=== PATIENT | male | born 1960 ===

== ENCOUNTER → 2017-11-13 | Outpatient (CLI) | payer OTHER ==
--- NOTE | 2017-11-13 14:24 | Diagnostic Imaging Report ---
PROCEDURE: CT head without contrast. TECHNIQUE: Multiple contiguous axial images were obtained through the brain without the use of intravenous contrast. INDICATION: Double vision and pain to the posterior aspect of the head. COMPARISON: No prior studies are available for comparison. FINDINGS: The ventricles and sulci are within normal limits. No sulcal effacement is identified. There is no midline shift. No acute intra-axial or extra-axial hemorrhage is detected. The cisterns are patent. The visualized paranasal sinuses are clear. IMPRESSION: No acute intracranial process is detected. Dictated by: Dictated on workstation # [id number]
== END ==
LOC: RAD 14:00
PROVIDERS: ATTEND Pediatrics
DX: R26.2 Difficulty in walking, not elsewhere classified (principal); H53.2 Diplopia; R51 Headache
CPT/HCPCS: 70450

== ENCOUNTER → 2017-12-31 | Outpatient (CLI) | payer OTHER ==
[~2017-12-31] MED LIST: GADOBUTROL 7.5 MMOL/7.5 ML (GADAVIST) VIAL IV ONE
[2017-12-31 08:20] LABS: BUN/CREATININE RATIO 19; CREATININE SERUM 0.73 MG/DL (0.60-1.30); GFR ESTIMATED > 60
--- NOTE | 2017-12-31 09:54 | Diagnostic Imaging Report ---
PROCEDURE: MR imaging of the brain with and without contrast. TECHNIQUE: Multiplanar, multisequence MR imaging of the brain was performed with and without contrast. INDICATION: Blurred vision for two weeks. No prior MRI studies are available for comparison. The ventricles and sulci are within normal limits. No sulcal effacement or midline shift is identified. No acute intra-axial or extra-axial hemorrhage is detected. No diffusion restriction is identified. The normal expected flow-voids within the carotid siphons are seen. No abnormal enhancement is seen following contrast administration. Corpus callosum is unremarkable. The sella and parasellar structures are unremarkable. There is some mucosal thickening of the left half of the frontal sinus as well as several ethmoid air cells and the maxillary sinuses bilaterally. IMPRESSION: 1. Essentially unremarkable MRI of the brain. There is paranasal sinus mucosal disease. No other significant abnormality is seen. Dictated by: Dictated on workstation # [id number]
== END ==
LOC: RAD 07:06
PROVIDERS: ATTEND Pediatrics
DX: J32.9 Chronic sinusitis, unspecified (principal); H53.8 Other visual disturbances
CPT/HCPCS: 36415; 70553; 82565; 84520